=== PATIENT | female | born 1955 | race Caucasian/White ===

== ENCOUNTER 2022-07-20 12:42 | Inpatient (IN) ==
[2022-07-20] MEDS ORDERED: cefTRIAXone 1,000 MG in SODIUM CHLORIDE 0.9% 100 ML IV STA (14:57)
[2022-07-20] MEDS ORDERED: AZITHROMYCIN INJ 500 MG in SODIUM CHLORIDE 0.9% 250 ML IV STA (14:57)
[2022-07-20 15:40] LABS: Basophils % 0.1 % (0.0-0.8); Eosinophils # 0.1 10*3/uL (0.0-0.87); Eosinophils % 0.9 % (0.00-10.9); Hematocrit 44.8 VOL% (35.7-47.0); Immature Granulocytes % 0.3 %; Immature Granulocytes Absolute 0.02 #; Lymphocytes # 0.6 10*3/uL (1.4-4.0); Lymphocytes % 7.3 % (21.3-54.2); Mean Corpuscular HGB Conc 35.7 GM/DL (32-36); Mean Corpuscular Volume 89.6 FL (87-102); Mean Platelet Volume 8.7 FL (9.6-12.0); Monocytes # 0.5 10*3/uL (0.11-0.8); Monocytes % 6.9 % (1.7-12.7); Neutrophils % 84.5 % (38.7-73.9); Platelet Count 148 T/CUMM (130-400); Red Cell Distribution Width 12.4 % (9.3-17.3); White Blood Count 7.7 T/CUMM (4-12)
[2022-07-20 15:55] LABS: INR 1.1; PT Patient Result 12.2 SECS (10.1-12.1)
[2022-07-20 16:02] LABS: Alanine Aminotransferase 22 U/L (13-56); Albumin 2.4 G/DL (3.4-5.0); Alkaline Phosphatase 121 U/L (45-117); Aspartate Amino Transferase 30 U/L (0-37); Blood Urea Nitrogen 6 MG/DL (7-18); Calcium 8.4 MG/DL (8.5-10.1); Carbon Dioxide 34 MMOL/L (21-32); Chloride 77 MMOL/L (98-107); Glucose 89 MG/DL (74-106); Osmolality,Calculated 234.5 MOS/KG (273-304); Potassium 3.9 MMOL/L (3.5-5.1); Total Protein 5.6 G/DL (6.4-8.2)
[2022-07-20 16:02] LABS: Arterial Base Excess iSTAT 7 MMOL/L (-2.5-2.5); Arterial Bicarbonate iSTAT 35.8 MMOL/L (20-26); Arterial O2 Saturation iSTAT 95 % (95-100); Arterial PCO2 iSTAT 65 MM HG (35-48); Arterial PO2 iSTAT 83 MM HG (80-95); Arterial Total CO2 iSTAT 38 MMO/L (23-27)
[2022-07-20 16:04] LABS: Sodium 118 MMOL/L (136-145)
[2022-07-20 16:32] LABS: Bacteria,Urine Occasional /HPF (Few); Mucus,Urine Occasional /LPF (Occasional); RBC,Urine 1 /HPF (0-4); Squamous Epithelial Cell,Urine Occasional /HPF (0-10)
[2022-07-20 16:33] LABS: Glucose,Urine (UA) Negative (Negative); Ketones,Urine Negative (Negative); Nitrite,Urine Negative (Negative); Protein,Urine 100 mg/dL (Negative); Urine Appearance Clear (Clear); Urine Color Yellow (Yellow); Urine Specific Gravity 1.025 (1.001-1.035)
[2022-07-20 16:34] LABS: Bilirubin,Urine Small mg/dL (Negative); Blood, Urine Trace mg/dL (Negative)
[2022-07-20] MEDS ORDERED: PIPERACILLIN/TAZOBACTAM 3,375 MG in SODIUM CHLORIDE 0.9% 100 ML IV STA (16:43)
[2022-07-20] MEDS ORDERED: ALBUTEROL 2.5 MG/3 ML NEB RESP TX PRN (16:45)
[2022-07-20] MEDS ORDERED: ONDANSETRON 4 MG/2 ML VIAL IV PRN (16:45)
[2022-07-20] MEDS ORDERED: DEXTROSE 5% NACL 0.9% 1,000 ML IV SCH (17:00)
[2022-07-20 17:01] LABS: Barbiturates Screen,Urine Negative (Negative); Benzodiazepines Screen,Urine Positive (Negative); Cannabinoid Screen,Urine Negative (Negative); Opiate Screen,Urine Negative (Negative); Phencyclidine Screen,Urine Negative (Negative)
[2022-07-20] MEDS ORDERED: NICOTINE 7 MG/24 HR PATCH TRANSDERM PRN (17:56)
[2022-07-20] MEDS ORDERED: SODIUM CHLORIDE 3% INJ 100 ML IV ONE ×2 (18:00→23:10)
[2022-07-20] MEDS: PANTOPRAZOLE 40 MG VIAL IV SCH (18:32)
[2022-07-20 18:52] LABS: Bacteria,Urine Few /HPF (Few); Hyaline Casts,Urine 3 /LPF (0-3); Mucus,Urine Occasional /LPF (Occasional); RBC,Urine 1 /HPF (0-4); Squamous Epithelial Cell,Urine Occasional /HPF (0-10)
[2022-07-20 18:54] LABS: Glucose,Urine (UA) Negative (Negative); Protein,Urine 30 mg/dL (Negative); Urine Appearance Clear (Clear); Urine Color Yellow (Yellow); Urine pH 5.5 (4.5-8.0)
[2022-07-20 18:55] LABS: Bilirubin,Urine Negative (Negative); Blood, Urine Trace mg/dL (Negative); Ketones,Urine Trace mg/dL (Negative); Nitrite,Urine Positive (Negative)
[2022-07-20] MEDS: ENOXAPARIN 40 MG/0.4 ML SYRINGE SUBCUT SCH (20:12)
[2022-07-20] MEDS ORDERED: DEXTROSE 5% 1,000 ML IV SCH (23:45)
[2022-07-21] MEDS: DEXTROSE 5% NACL 0.9% 1,000 ML IV SCH ×3 (00:01→17:03)
[2022-07-21] MEDS: PIPERACILLIN/TAZOBACTAM 3,375 MG in SODIUM CHLORIDE 0.9% 100 ML IV SCH ×3 (02:03→17:37)
[2022-07-21 06:01] LABS: Basophils % 0.1 % (0.0-0.8); Eosinophils % 0.1 % (0.00-10.9); Hematocrit 44.3 VOL% (35.7-47.0); Hemoglobin 15.2 GM/DL (12.0-16.0); Immature Granulocytes % 0.5 %; Immature Granulocytes Absolute 0.04 #; Lymphocytes # 0.4 10*3/uL (1.4-4.0); Mean Corpuscular HGB Conc 34.3 GM/DL (32-36); Mean Corpuscular Volume 92.5 FL (87-102); Mean Platelet Volume 8.6 FL (9.6-12.0); Monocytes # 0.6 10*3/uL (0.11-0.8); Monocytes % 7.2 % (1.7-12.7); Neutrophils % 87.1 % (38.7-73.9); Platelet Count 161 T/CUMM (130-400); Red Blood Count 4.79 MC/CUMM (3.8-5.5); Red Cell Distribution Width 12.6 % (9.3-17.3); White Blood Count 8.7 T/CUMM (4-12)
[2022-07-21] MEDS ORDERED: SODIUM CHLORIDE 3% INJ 100 ML IV ONE (07:37)
[2022-07-21 07:56] LABS: Calcium 7.6 MG/DL (8.5-10.1); Osmolality,Calculated 251.4 MOS/KG (273-304); Potassium 3.2 MMOL/L (3.5-5.1)
[2022-07-21] MEDS ORDERED: MAGNESIUM SULF RIDER 4 GM/100 ML PREMIX IV ONE (09:00)
[2022-07-21] MEDS: POTASSIUM CHLORIDE 20 MEQ TABLET PO SCH ×3 (09:55→17:35)
[2022-07-21] MEDS: ESTRADIOL 2 MG TABLET PO SCH (09:56)
[2022-07-21] MEDS: methylPREDNISolone SOD SUC 40 MG/1 ML VIAL IV SCH ×2 (11:53→20:41)
[2022-07-21] MEDS: SODIUM CHLORIDE 3% INJ 100 ML IV SCH ×2 (13:30→16:00)
[2022-07-21] MEDS: ALBUTEROL/IPRATROPIUM 3 ML NEB RESP TX SCH ×2 (13:32→19:16)
[2022-07-21] MEDS ORDERED: SODIUM CHLORIDE 0.9% 1,000 ML IV SCH (16:00)
[2022-07-21] MEDS: PANTOPRAZOLE 40 MG VIAL IV SCH (17:35)
[2022-07-21] MEDS: ENOXAPARIN 40 MG/0.4 ML SYRINGE SUBCUT SCH (20:42)
[2022-07-21] MEDS ORDERED: DEXTROSE 5% 1,000 ML IV SCH (21:30)
[2022-07-22] MEDS: ALBUTEROL/IPRATROPIUM 3 ML NEB RESP TX SCH ×5 (00:54→23:24)
[2022-07-22] MEDS: PIPERACILLIN/TAZOBACTAM 3,375 MG in SODIUM CHLORIDE 0.9% 100 ML IV SCH ×3 (01:22→17:09)
[2022-07-22] MEDS: methylPREDNISolone SOD SUC 40 MG/1 ML VIAL IV SCH ×3 (03:42→21:27)
[2022-07-22 03:44] LABS: Arterial Base Excess iSTAT 4 MMOL/L (-2.5-2.5); Arterial O2 Saturation iSTAT 90 % (95-100); Arterial PCO2 iSTAT 65 MM HG (35-48); Arterial PO2 iSTAT 65 MM HG (80-95); Arterial Total CO2 iSTAT 35 MMO/L (23-27); Arterial pH iSTAT 7.313 (7.35-7.45)
[2022-07-22 03:51] LABS: Eosinophils % 0.2 % (0.00-10.9); Hematocrit 44.7 VOL% (35.7-47.0); Hemoglobin 14.6 GM/DL (12.0-16.0); Immature Granulocytes % 0.5 %; Immature Granulocytes Absolute 0.04 #; Lymphocytes # 0.1 10*3/uL (1.4-4.0); Lymphocytes % 1.6 % (21.3-54.2); Mean Corpuscular HGB Conc 32.7 GM/DL (32-36); Mean Corpuscular Volume 96.1 FL (87-102); Mean Platelet Volume 8.6 FL (9.6-12.0); Monocytes # 0.1 10*3/uL (0.11-0.8); Monocytes % 1.1 % (1.7-12.7); Neutrophils % 96.6 % (38.7-73.9); Platelet Count 144 T/CUMM (130-400); Red Blood Count 4.65 MC/CUMM (3.8-5.5); Red Cell Distribution Width 12.9 % (9.3-17.3); White Blood Count 8.1 T/CUMM (4-12)
[2022-07-22 04:12] LABS: Albumin 2.2 G/DL (3.4-5.0); Bilirubin,Total 0.7 MG/DL (0.20-1.00); Calcium 7.5 MG/DL (8.5-10.1); Lymphocytes 2 % (20-55); Osmolality,Calculated 259.9 MOS/KG (273-304); Phosphorous 2.1 MG/DL (2.5-4.9); Platelet Estimate Adequate; Potassium 4.6 MMOL/L (3.5-5.1); Total Cells Counted 100; Total Protein 5.5 G/DL (6.4-8.2)
[2022-07-22] MEDS: ESTRADIOL 2 MG TABLET PO SCH (09:16)
[2022-07-22] MEDS: atenoloL 25 MG TABLET PO SCH (09:21)
[2022-07-22] MEDS: SODIUM CHLORIDE 0.9% 1,000 ML IV SCH (09:58)
[2022-07-22] MEDS: PANTOPRAZOLE 40 MG VIAL IV SCH (17:09)
[2022-07-22] MEDS: DEXTROSE 5% NACL 0.9% 1,000 ML IV SCH (18:33)
[2022-07-22] MEDS: ENOXAPARIN 40 MG/0.4 ML SYRINGE SUBCUT SCH ×2 (22:29→22:32)
[2022-07-23] MEDS: PIPERACILLIN/TAZOBACTAM 3,375 MG in SODIUM CHLORIDE 0.9% 100 ML IV SCH ×3 (00:23→17:07)
[2022-07-23 03:20] LABS: Arterial Base Excess iSTAT 3 MMOL/L (-2.5-2.5); Arterial Bicarbonate iSTAT 32.9 MMOL/L (20-26); Arterial O2 Saturation iSTAT 63 % (95-100); Arterial PCO2 iSTAT 69 MM HG (35-48); Arterial PO2 iSTAT 38 MM HG (80-95); Arterial Total CO2 iSTAT 35 MMO/L (23-27); Arterial pH iSTAT 7.288 (7.35-7.45)
[2022-07-23 03:20] LABS: Arterial Base Excess iSTAT 2 MMOL/L (-2.5-2.5); Arterial Bicarbonate iSTAT 31.5 MMOL/L (20-26); Arterial O2 Saturation iSTAT 67 % (95-100); Arterial PCO2 iSTAT 69 MM HG (35-48); Arterial PO2 iSTAT 41 MM HG (80-95); Arterial Total CO2 iSTAT 34 MMO/L (23-27); Arterial pH iSTAT 7.267 (7.35-7.45)
[2022-07-23 03:20] LABS: Arterial Base Excess iSTAT 2 MMOL/L (-2.5-2.5); Arterial Bicarbonate iSTAT 31.6 MMOL/L (20-26); Arterial O2 Saturation iSTAT 29 % (95-100); Arterial PCO2 iSTAT 67 MM HG (35-48); Arterial PO2 iSTAT 22 MM HG (80-95); Arterial Total CO2 iSTAT 34 MMO/L (23-27)
[2022-07-23] MEDS: methylPREDNISolone SOD SUC 40 MG/1 ML VIAL IV SCH ×4 (03:40→22:06)
[2022-07-23] MEDS: SODIUM CHLORIDE 0.9% 1,000 ML IV SCH (05:14)
[2022-07-23 06:51] LABS: Basophils % 0.1 % (0.0-0.8); Eosinophils % 0.1 % (0.00-10.9); Hematocrit 43.2 VOL% (35.7-47.0); Immature Granulocytes % 0.7 %; Immature Granulocytes Absolute 0.09 #; Lymphocytes # 0.1 10*3/uL (1.4-4.0); Mean Corpuscular HGB Conc 32.4 GM/DL (32-36); Mean Corpuscular Volume 99.1 FL (87-102); Mean Platelet Volume 8.7 FL (9.6-12.0); Monocytes # 0.3 10*3/uL (0.11-0.8); Monocytes % 2.3 % (1.7-12.7); Neutrophils % 95.8 % (38.7-73.9); Platelet Count 150 T/CUMM (130-400); Red Blood Count 4.36 MC/CUMM (3.8-5.5)
[2022-07-23 07:11] LABS: Albumin 2.1 G/DL (3.4-5.0); Bilirubin,Total 0.6 MG/DL (0.20-1.00); Calcium 8.5 MG/DL (8.5-10.1); Osmolality,Calculated 262.7 MOS/KG (273-304); Potassium 4.7 MMOL/L (3.5-5.1); Total Protein 5.4 G/DL (6.4-8.2)
[2022-07-23] MEDS: ALBUTEROL/IPRATROPIUM 3 ML NEB RESP TX SCH ×3 (07:19→19:27)
[2022-07-23 07:40] LABS: Lymphocytes 1 % (20-55); Platelet Estimate Adequate; Total Cells Counted 100
[2022-07-23 07:46] LABS: Calcium 8.4 MG/DL (8.5-10.1); Osmolality,Calculated 262.7 MOS/KG (273-304); Potassium 4.7 MMOL/L (3.5-5.1)
[2022-07-23] MEDS ORDERED: FUROSEMIDE 20 MG/2 ML VIAL IV ONE (08:25)
[2022-07-23] MEDS: atenoloL 25 MG TABLET PO SCH (08:38)
[2022-07-23] MEDS: ESTRADIOL 2 MG TABLET PO SCH (08:39)
[2022-07-23] MEDS: PANTOPRAZOLE 40 MG VIAL IV SCH (17:04)
[2022-07-23] MEDS: ENOXAPARIN 40 MG/0.4 ML SYRINGE SUBCUT SCH (21:22)
[2022-07-24] MEDS: ALBUTEROL/IPRATROPIUM 3 ML NEB RESP TX SCH ×4 (00:20→20:15)
[2022-07-24 02:11] LABS: Arterial Base Excess iSTAT 6 MMOL/L (-2.5-2.5); Arterial Bicarbonate iSTAT 36.2 MMOL/L (20-26); Arterial O2 Saturation iSTAT 78 % (95-100); Arterial PCO2 iSTAT 78 MM HG (35-48); Arterial PO2 iSTAT 50 MM HG (80-95); Arterial Total CO2 iSTAT 39 MMO/L (23-27); Arterial pH iSTAT 7.274 (7.35-7.45)
[2022-07-24] MEDS: PIPERACILLIN/TAZOBACTAM 3,375 MG in SODIUM CHLORIDE 0.9% 100 ML IV SCH ×3 (02:48→16:38)
[2022-07-24] MEDS: methylPREDNISolone SOD SUC 40 MG/1 ML VIAL IV SCH ×4 (03:45→21:24)
[2022-07-24 06:41] LABS: Hemoglobin 14.9 GM/DL (12.0-16.0); Immature Granulocytes % 1.4 %; Immature Granulocytes Absolute 0.11 #; Lymphocytes # 0.2 10*3/uL (1.4-4.0); Lymphocytes % 1.9 % (21.3-54.2); Mean Platelet Volume 8.9 FL (9.6-12.0); Monocytes # 0.4 10*3/uL (0.11-0.8); Monocytes % 4.7 % (1.7-12.7); NRBC # 0.02 10*3/uL; Platelet Count 151 T/CUMM (130-400); Red Blood Count 4.66 MC/CUMM (3.8-5.5); Red Cell Distribution Width 13.2 % (9.3-17.3); White Blood Count 8.1 T/CUMM (4-12)
[2022-07-24 06:54] LABS: Calcium 9.2 MG/DL (8.5-10.1); Osmolality,Calculated 270.2 MOS/KG (273-304); Potassium 4.8 MMOL/L (3.5-5.1)
[2022-07-24 06:58] LABS: Albumin 2.5 G/DL (3.4-5.0); Bilirubin,Total 0.7 MG/DL (0.20-1.00); Calcium 9.2 MG/DL (8.5-10.1); Osmolality,Calculated 268.4 MOS/KG (273-304); Potassium 4.9 MMOL/L (3.5-5.1); Total Protein 6.1 G/DL (6.4-8.2)
[2022-07-24 07:05] LABS: Platelet Estimate Adequate; Total Cells Counted 100
[2022-07-24 07:06] LABS: Arterial Base Excess iSTAT 7 MMOL/L (-2.5-2.5); Arterial O2 Saturation iSTAT 92 % (95-100); Arterial PCO2 iSTAT 74 MM HG (35-48); Arterial PO2 iSTAT 74 MM HG (80-95); Arterial Total CO2 iSTAT 39 MMO/L (23-27); Arterial pH iSTAT 7.308 (7.35-7.45)
[2022-07-24] MEDS: atenoloL 25 MG TABLET PO SCH (09:24)
[2022-07-24] MEDS: FOLIC ACID 1 MG TABLET PO SCH (09:24)
[2022-07-24] MEDS: MULTIVITAMIN (CENTRUM) TABLET PO SCH (09:24)
[2022-07-24] MEDS: THIAMINE 100 MG TABLET PO SCH (09:24)
[2022-07-24] MEDS: ESTRADIOL 2 MG TABLET PO SCH (09:25)
[2022-07-24 12:34] LABS: Arterial Base Excess iSTAT 4 MMOL/L (-2.5-2.5); Arterial Bicarbonate iSTAT 34.8 MMOL/L (20-26); Arterial O2 Saturation iSTAT 71 % (95-100); Arterial PCO2 iSTAT 82 MM HG (35-48); Arterial PO2 iSTAT 46 MM HG (80-95); Arterial Total CO2 iSTAT 37 MMO/L (23-27); Arterial pH iSTAT 7.238 (7.35-7.45)
[2022-07-24] MEDS: PANTOPRAZOLE 40 MG VIAL IV SCH (16:38)
[2022-07-24] MEDS: ENOXAPARIN 40 MG/0.4 ML SYRINGE SUBCUT SCH (21:25)
[2022-07-25] MEDS: PIPERACILLIN/TAZOBACTAM 3,375 MG in SODIUM CHLORIDE 0.9% 100 ML IV SCH ×3 (01:02→17:05)
[2022-07-25] MEDS: ALBUTEROL/IPRATROPIUM 3 ML NEB RESP TX SCH ×4 (01:40→19:07)
[2022-07-25] MEDS: methylPREDNISolone SOD SUC 40 MG/1 ML VIAL IV SCH ×4 (04:11→21:08)
[2022-07-25 06:04] LABS: Basophils % 0.1 % (0.0-0.8); Hematocrit 45.8 VOL% (35.7-47.0); Hemoglobin 14.3 GM/DL (12.0-16.0); Immature Granulocytes % 0.8 %; Immature Granulocytes Absolute 0.06 #; Lymphocytes # 0.3 10*3/uL (1.4-4.0); Lymphocytes % 3.9 % (21.3-54.2); Mean Corpuscular HGB Conc 31.2 GM/DL (32-36); Mean Corpuscular Volume 102.2 FL (87-102); Mean Platelet Volume 9.6 FL (9.6-12.0); Monocytes # 0.5 10*3/uL (0.11-0.8); Monocytes % 6.9 % (1.7-12.7); Neutrophils % 88.3 % (38.7-73.9); Platelet Count 126 T/CUMM (130-400); Red Blood Count 4.48 MC/CUMM (3.8-5.5); Red Cell Distribution Width 13.2 % (9.3-17.3); White Blood Count 7.5 T/CUMM (4-12)
[2022-07-25 06:23] LABS: Lymphocytes 6 % (20-55); Nucleated Red Blood Cells 1 /100 WBC (0-5); Total Cells Counted 100
[2022-07-25 06:24] LABS: Calcium 9.1 MG/DL (8.5-10.1); Osmolality,Calculated 274.8 MOS/KG (273-304); Platelet Estimate Adequate; Potassium 4.9 MMOL/L (3.5-5.1)
[2022-07-25 06:27] LABS: Albumin 2.3 G/DL (3.4-5.0); Bilirubin,Total 0.8 MG/DL (0.20-1.00); Calcium 9.2 MG/DL (8.5-10.1); Potassium 4.8 MMOL/L (3.5-5.1); Total Protein 5.7 G/DL (6.4-8.2)
[2022-07-25] MEDS: atenoloL 25 MG TABLET PO SCH (08:33)
[2022-07-25] MEDS: MULTIVITAMIN (CENTRUM) TABLET PO SCH (08:33)
[2022-07-25] MEDS: FOLIC ACID 1 MG TABLET PO SCH (08:33)
[2022-07-25] MEDS: ESTRADIOL 2 MG TABLET PO SCH (08:33)
[2022-07-25] MEDS: THIAMINE 100 MG TABLET PO SCH (08:33)
[2022-07-25 08:47] LABS: Arterial Base Excess iSTAT 7 MMOL/L (-2.5-2.5); Arterial Bicarbonate iSTAT 36.4 MMOL/L (20-26); Arterial O2 Saturation iSTAT 89 % (95-100); Arterial PCO2 iSTAT 69 MM HG (35-48); Arterial PO2 iSTAT 64 MM HG (80-95); Arterial Total CO2 iSTAT 38 MMO/L (23-27); Arterial pH iSTAT 7.328 (7.35-7.45)
[2022-07-25] MEDS: LORazepam 2 MG/1 ML VIAL IV PRN ×2 (12:33→21:09)
[2022-07-25] MEDS: PANTOPRAZOLE 40 MG VIAL IV SCH (16:04)
[2022-07-25] MEDS: ENOXAPARIN 40 MG/0.4 ML SYRINGE SUBCUT SCH (21:08)
[2022-07-26] MEDS: PIPERACILLIN/TAZOBACTAM 3,375 MG in SODIUM CHLORIDE 0.9% 100 ML IV SCH ×2 (00:15→09:15)
[2022-07-26] MEDS: ALBUTEROL/IPRATROPIUM 3 ML NEB RESP TX SCH ×2 (01:11→07:50)
[2022-07-26] MEDS: methylPREDNISolone SOD SUC 40 MG/1 ML VIAL IV SCH ×2 (04:30→09:15)
[2022-07-26 05:27] LABS: Basophils % 0.1 % (0.0-0.8); Hematocrit 47.7 VOL% (35.7-47.0); Immature Granulocytes % 0.9 %; Immature Granulocytes Absolute 0.08 #; Lymphocytes # 0.4 10*3/uL (1.4-4.0); Lymphocytes % 4.3 % (21.3-54.2); Mean Corpuscular HGB Conc 31.4 GM/DL (32-36); Mean Corpuscular Volume 101.1 FL (87-102); Mean Platelet Volume 9.2 FL (9.6-12.0); Monocytes # 0.5 10*3/uL (0.11-0.8); Neutrophils % 89.7 % (38.7-73.9); Platelet Count 107 T/CUMM (130-400); Red Blood Count 4.72 MC/CUMM (3.8-5.5); Red Cell Distribution Width 13.1 % (9.3-17.3); White Blood Count 8.9 T/CUMM (4-12)
[2022-07-26 05:39] LABS: Calcium 9.2 MG/DL (8.5-10.1); Osmolality,Calculated 278.5 MOS/KG (273-304); Potassium 4.9 MMOL/L (3.5-5.1)
[2022-07-26 05:57] LABS: Lymphocytes 2 % (20-55); Total Cells Counted 100
[2022-07-26] MEDS ORDERED: MAGNESIUM SULF RIDER 2 GM/50 ML PREMIX IV ONE (08:49)
[2022-07-26] MEDS: THIAMINE 100 MG TABLET PO SCH (09:18)
[2022-07-26] MEDS: atenoloL 25 MG TABLET PO SCH (09:18)
[2022-07-26] MEDS: FOLIC ACID 1 MG TABLET PO SCH (09:19)
[2022-07-26] MEDS: MULTIVITAMIN (CENTRUM) TABLET PO SCH (09:19)
[2022-07-26] MEDS: ESTRADIOL 2 MG TABLET PO SCH (09:19)
[2022-07-26 12:05] VITALS: BP 97/63
== END 2022-07-26 16:00 | DRG 640 ==
LOC: N.ED 12:42 → SUATTDRO 16:45 → N.EDINP 16:45 → N.CC 18:11 → N.TELEN 07-22 18:16
PROVIDERS: ADMIT Internal Medicine; ATTEND Internal Medicine